=== PATIENT | female | born 1950 | race Hispanic/Latino ===

== ENCOUNTER 2019-06-05 14:22 | Inpatient (IN) | payer MEDICARE ==
[~2019-06-05] VITALS: Ht 149.9 cm; Wt 65.5 kg
[2019-06-05 15:00] LABS: BASOPHILS % (AUTO) 0.3 % (0.0-5.0); HEMATOCRIT 38.4 % (36-48); LYMPHOCYTES % (AUTO) 6.8 % (21.0-51.0); MEAN CORPUSCULAR HEMOGLOBIN 29.4 pg (27.0-33.0); MEAN CORPUSCULAR HGB CONC 34.6 g/dL (32.0-36.0); MONOCYTES % (AUTO) 8.1 % (3.0-13.0); NEUTROPHILS % (AUTO) 84.8 % (40.0-77.0); PLATELET COUNT (AUTO) 208 K/uL (130-400); RED BLOOD CELL COUNT(AUTO) 4.52 MIL/uL (4.00-5.50); WHITE BLOOD COUNT (AUTO) 10.7 K/uL (4.8-10.8)
[2019-06-05 15:09] LABS: INR 1.01 (0.85-1.15); PARTIAL THROMBOPLASTIN TIME 28.9 SEC (26.3-35.5); PROTHROMBIN TIME 10.6 SEC (9.6-11.6)
[2019-06-05 15:13] LABS: BILIRUBIN,URINE Negative (NEGATIVE); COLOR,URINE Dark Yellow (YELLOW); GLUCOSE, URINE (UA) Negative (NEGATIVE); KETONES,URINE Negative (NEGATIVE); LEUKOCYTE ESTERASE ,URINE Trace (NEGATIVE); NITRATE,URINE Negative (NEGATIVE); OCCULT BLOOD,URINE Large (NEGATIVE); PROTEIN,URINE POS 2+ mg/dL (NEGATIVE)
[2019-06-05 15:14] LABS: APPEARANCE,URINE CLOUDY (CLEAR)
[2019-06-05 15:20] LABS: AMPHET/METH SCREEN,URINE NEGATIVE (NEGATIVE); BARBITURATE SCREEN, URINE NEGATIVE (NEGATIVE); BENZODIAZEPINES SCREEN,URINE NEGATIVE (NEGATIVE); CANNABINOID SCREEN,URINE NEGATIVE (NEGATIVE); COCAINE SCREEN,URINE NEGATIVE (NEGATIVE); OPIATE SCREEN,URINE NEGATIVE (NEGATIVE); PHENCYCLIDINE SCREEN,URINE NEGATIVE (NEGATIVE)
[2019-06-05 15:21] LABS: BACTERIA,URINE Few /HPF (None Seen)
[2019-06-05 15:23] LABS: AMORPHOUS SEDIMENT,UR Moderate /LPF (None Seen); COARSE GRANULAR CASTS,URINE 0-2 /LPF (None Seen); SQUAMOUS EPITHELIAL CELL,UR Rare /HPF (0-2)
[2019-06-05 15:28] LABS: ALBUMIN 3.1 g/dL (3.5-5.0); BILIRUBIN,TOTAL 0.4 mg/dL (0.2-1.0); CREATININE 2.7 mg/dL (0.5-1.5); TOTAL PROTEIN, SERUM 7.9 g/dL (6.0-8.3)
[2019-06-05 15:48] LABS: POTASSIUM 2.8 mmol/L (3.5-5.1)
[2019-06-05] MEDS ORDERED: POTASSIUM BICARB/CIT AC 25 MEQ TABLET.EFF ONE (16:07)
[2019-06-05] MEDS ORDERED: SODIUM CHLORIDE 0.9% 1000ML 0 ML IV ONE (16:07)
[2019-06-05] MEDS ORDERED: SODIUM CHLORIDE 0.9% 100 ML IV ONE (16:34)
[2019-06-05] MEDS ORDERED: ACETAMINOPHEN 650 MG SUPPOSITORY RC ONE (16:34)
[2019-06-05] MEDS ORDERED: CEFTRIAXONE SODIUM 1 GM ONE (16:34)
[2019-06-05] MEDS ORDERED: SODIUM CHLORIDE 0.9% 1000ML 1,000 ML IV ONE (16:35)
[2019-06-05] MEDS ORDERED: POTASSIUM CHLORIDE 20MEQ/100ML 100 ML IV ONE (17:27)
[2019-06-05] MEDS ORDERED: SODIUM CHLORIDE 0.9% 1000ML 2,000 ML IV ONE (17:29)
[2019-06-05] MEDS: SODIUM CHLORIDE 0.9% 1000ML 1,000 ML IV SCH (17:30)
[2019-06-05] MEDS ORDERED: LIDOCAINE HCL-MPF 1% 2ML VIAL ONE (17:36)
[2019-06-05] MEDS ORDERED: CEFTRIAXONE SODIUM 1 GM IVP SCH (17:45)
[2019-06-05 19:12] VITALS: BP 99/58
[2019-06-05] MEDS ORDERED: HC2530O TP (22:19)
[2019-06-05] MEDS ORDERED: PRAV40TA3 PO (22:19)
[2019-06-05] MEDS ORDERED: METO25TA6 PO (22:19)
[2019-06-05] MEDS ORDERED: METF-444 PO (22:19)
[2019-06-05] MEDS ORDERED: CHOL50004 PO (22:19)
[2019-06-05] MEDS ORDERED: GABA-529 PO (22:19)
[2019-06-05] MEDS ORDERED: GLIP10TA9 PO (22:19)
[2019-06-05] MEDS ORDERED: LORA10TA7 PO (22:19)
[2019-06-05] MEDS ORDERED: LISI1TAB29 PO (22:19)
[2019-06-05] MEDS ORDERED: LEVO50TA11 PO (22:19)
[2019-06-06 00:20] VITALS: BP 121/68
[2019-06-06 04:28] VITALS: BP 143/79
[2019-06-06 05:19] LABS: HEMATOCRIT 35.9 % (36-48); MEAN CORPUSCULAR HEMOGLOBIN 29.8 pg (27.0-33.0); MEAN CORPUSCULAR HGB CONC 35.1 g/dL (32.0-36.0); MEAN CORPUSCULAR VOLUME 84.9 fL (79-99); PLATELET COUNT (AUTO) 174 K/uL (130-400); RED BLOOD CELL COUNT(AUTO) 4.23 MIL/uL (4.00-5.50); RED CELL DISTRIBUTION WIDTH 13.1 % (11.0-15.5); WHITE BLOOD COUNT (AUTO) 12.9 K/uL (4.8-10.8)
[2019-06-06 06:02] LABS: BAND NEUTROPHILS % (MANUAL) 21 % (0-2); BASOPHILS % (MANUAL) 1 % (0-2); LYMPHOCYTES % (MANUAL) 1 % (22-44); MAN.DIFF COMMENT-IMPRESSION MANUAL DIFFERENTIAL; MONOCYTES % (MANUAL) 3 % (2-9); PLATELET MORPHOLOGY COMMENT ADEQUATE; SEGMENTED NEUTROPHILS % 74 % (40-70)
[2019-06-06 06:17] LABS: CARBON DIOXIDE 19 mmol/L (21-32); CHLORIDE 105 mmol/L (101-111); CREATININE 2.2 mg/dL (0.5-1.5); GLOMERULAR FILTR. RATE CALC 23 mL/min (>60); MYOGLOBIN 608 ng/mL (10-92); PHOSPHORUS 2.5 mg/dL (2.5-4.9); SODIUM SERUM 142 mmol/L (136-145); TROPONIN I < 0.04 ng/mL (0.00-0.06); UREA NITROGEN, BLOOD 46 mg/dL (7-18)
[2019-06-06 06:37] LABS: POTASSIUM 2.9 mmol/L (3.5-5.1)
[2019-06-06 06:38] LABS: CREATINE KINASE, TOTAL 1898 U/L (21-232); GLUCOSE,RANDOM 42 mg/dL (70-105)
--- NOTE | 2019-06-06 06:39 | NUR ---
CRITICAL LAB RECEIVED CALL FROM LAB REGARDING POTASSIUM OF 2.9, PAGED DR Ksenia VALDEZ PENDING PHYSICIAN CALLBACK.
[2019-06-06] MEDS ORDERED: DEXTROSE 50%-WATER 50 ML DISP.SYRIN IV ONE (06:41)
[2019-06-06] MEDS: SODIUM CHLORIDE 0.9% 1000ML 1,000 ML IV SCH (06:50)
[2019-06-06 08:00] VITALS: BP 131/65
[2019-06-06] MEDS ORDERED: DEXTROSE 50%-WATER 50 ML DISP.SYRIN IV PRN (08:15)
[2019-06-06] MEDS ORDERED: GLUCAGON 1MG KIT 1 MG ML IM PRN (08:15)
[2019-06-06] MEDS: **HM** VIT D3 5000 UNITS PO SCH (09:00)
[2019-06-06] MEDS: ATORVASTATIN CALCIUM 10 MG TABLET PO SCH (09:45)
[2019-06-06] MEDS: LORATADINE 10 MG TABLET PO SCH (09:45)
[2019-06-06] MEDS: LEVOTHYROXINE 50 MCG TABLET PO SCH (09:45)
[2019-06-06] MEDS: METOPROLOL TARTRATE 25 MG TAB PO SCH (09:46)
[2019-06-06] MEDS: POTASSIUM CHLORIDE 20 MEQ ERTAB PO SCH (09:46)
[2019-06-06] MEDS: INSULIN HUMULIN R 100 UNIT/ML 3ML SQ SCH ×3 (11:30→21:00)
[2019-06-06 12:01] VITALS: BP 141/78
--- NOTE | 2019-06-06 12:31 | NUR ---
DYSPHAGIA EVAL COMPLETED. +S/S OF ASPIRATION WITH THIN LIQUIDS AND SOLIDS. RECOMMEND PUREED, NECTAR-THICK LIQUIDS; PILLS CRUSHED WITH APPLE SAUCE. RECOMMENDATIONS: 1.DYSPHAGIA THERAPY 3-5X WEEK TO INCREASE ORAL MOTOR STRENGTH AND PHARYNGEAL SWALLOW: LTG#1: Pt WILL TOLERATE LEAST RESTRICTIVE DIET TO MEET NUTRITION/HYDRATION WITH NO S/S OF ASPIRATION. LTG#2: SKILLED EDUCATION Pt/FAMILY/STAFF STG#1: Pt WILL PARTICIPATE IN LARYNGEAL ELEVATION/EXCURSION EXERCISES WITH 80% ACCURACY. STG#2: Pt WILL PARTICIPATE IN TONGUE BASE RETRACTION EXERCISES WITH 80% ACCURACY. STG#3: Pt WILL PARTICIPATE IN ORAL MOTOR EXERCISES WITH 80% ACCURACY. STG#4: Pt WILL TOLERATE PUREED, NECTAR-THICK LIQUID DIET WITH NO S/S OF ASPIRATION. STG#5: PT WILL TOLERATE THERAPEUTIC TRIALS OF ADVANCED TEXTURE OF MECHANICAL SOFT/CHOPPED, THIN LIQUIDS WITH NO OVERT S/S OF ASPIRATION. STG#6: SKILLED EDUCATION Pt/FAMILY/STAFF. TRANSFER OPERATOR EDUCATED Pt AND FAMILY ON RESULTS AND RECOMMENDATIONS AND RISKS AND CONSEQUENCES OF ASPIRATION. ALL QUESTIONS ANSWERED AT THIS TIME. Addendum: 06/06/19 at 1236 by ASHLEY WOOD, [facility] Amended: Links added.
[2019-06-06 16:00] VITALS: BP 131/73
[2019-06-06] MEDS ORDERED: CEFTRIAXONE SODIUM 1 GM IVP SCH (16:00)
[2019-06-06] MEDS: CEFTRIAXONE SODIUM 1 GM IVP SCH (16:47)
--- NOTE | 2019-06-06 19:22 | NUR ---
cm note met with patient and states resides athome with spouse and daughter pre[place], per dtr, pt was independent with ambualtion and adls. prior to this admission, but has gotten very weak,and daughter assists with personal care. may need walker or dme.provided info on area agency on aging. discussed snf for rehab, per daughter open to snf. will followup as pt progresses. dc plan is back to home or snf if md orders. Addendum: 06/06/19 at 1925 by MAX BANG CM Amended: Links added.
[2019-06-06 19:30] VITALS: BP 129/69
--- NOTE | 2019-06-06 20:00 | NUR ---
paged Dr. Quick, but Dr. Zamora was career and transition teacher. Told him about patient's fever of 100.8, he ordered acetaminophen of 650 mg prn for fever. I also made him aware of patient's inability to sleep. He said he would come see the patient in the morning. Nothing ordered for lack of sleep.
[2019-06-06] MEDS ORDERED: ACETAMINOPHEN 325 MG TAB ONE (20:13)
[2019-06-06] MEDS: ACETAMINOPHEN 325 MG TAB PO PRN (21:15)
[2019-06-07] VITALS: BP 103/50
[2019-06-07 03:30] VITALS: BP 125/65
[2019-06-07 04:36] LABS: HEMATOCRIT 32.1 % (36-48); MEAN CORPUSCULAR HEMOGLOBIN 29.7 pg (27.0-33.0); MEAN CORPUSCULAR HGB CONC 35.1 g/dL (32.0-36.0); MEAN CORPUSCULAR VOLUME 84.6 fL (79-99); PLATELET COUNT (AUTO) 142 K/uL (130-400); RED BLOOD CELL COUNT(AUTO) 3.79 MIL/uL (4.00-5.50); RED CELL DISTRIBUTION WIDTH 13.5 % (11.0-15.5); WHITE BLOOD COUNT (AUTO) 11.1 K/uL (4.8-10.8)
[2019-06-07 04:50] LABS: CREATININE 2.2 mg/dL (0.5-1.5)
[2019-06-07 04:52] LABS: POTASSIUM 2.8 mmol/L (3.5-5.1)
[2019-06-07 05:16] LABS: BAND NEUTROPHILS % (MANUAL) 12 % (0-2); LYMPHOCYTES % (MANUAL) 7 % (22-44); MAN.DIFF COMMENT-IMPRESSION MANUAL DIFFERENTIAL; MONOCYTES % (MANUAL) 3 % (2-9); SEGMENTED NEUTROPHILS % 78 % (40-70)
[2019-06-07 05:17] LABS: PLATELET MORPHOLOGY COMMENT ADEQUATE
[2019-06-07] MEDS: INSULIN HUMULIN R 100 UNIT/ML 3ML SQ SCH ×4 (05:21→21:00)
[2019-06-07] MEDS: POTASSIUM CHLORIDE 20 MEQ ERTAB PO SCH (05:37)
--- NOTE | 2019-06-07 06:34 | NUR ---
evert neil aware of patient's low potassium. continue protocol.
[2019-06-07] MEDS: SODIUM CHLORIDE 0.9% 1000ML 1,000 ML IV SCH ×2 (06:54→22:47)
[2019-06-07 08:12] VITALS: BP 127/72
[2019-06-07] MEDS: ACETAMINOPHEN 325 MG TAB PO PRN ×2 (08:14→19:54)
[2019-06-07] MEDS: **HM** VIT D3 5000 UNITS PO SCH (09:00)
[2019-06-07] MEDS: METOPROLOL TARTRATE 25 MG TAB PO SCH (09:59)
[2019-06-07] MEDS: LEVOTHYROXINE 50 MCG TABLET PO SCH (09:59)
[2019-06-07] MEDS: ATORVASTATIN CALCIUM 10 MG TABLET PO SCH (09:59)
[2019-06-07] MEDS: LORATADINE 10 MG TABLET PO SCH (09:59)
[2019-06-07 11:21] VITALS: BP 106/62
[2019-06-07] MEDS ORDERED: LIDOCAINE HCL-MPF 1% 2ML VIAL IV PRN (13:15)
[2019-06-07] MEDS ORDERED: POTASSIUM CHLORIDE 10MEQ/100ML 100 ML IV PRN (13:15)
[2019-06-07 15:50] VITALS: BP 110/65
[2019-06-07] MEDS: CEFTRIAXONE SODIUM 1 GM IVP SCH (16:19)
[2019-06-07] MEDS: MAGNESIUM 2GM PREMIX 50ML 50 ML IV PRN (16:20)
[2019-06-07] MEDS: POTASSIUM CHLORIDE 20 MEQ ERTAB PO PRN ×2 (19:54→22:47)
[2019-06-07 20:45] VITALS: BP 140/61
--- NOTE | 2019-06-07 20:59 | NUR ---
NURSING NOTE Informed Dr. Zamora at 2057 of pt's temperature of 103.0 and tylenol was given and pt's temp is now 102.8. Informed him Blood cultures and urine cultures have already been taken. He stated at this time to wait for results since pt is already on antibiotic and make sure CBC and BMP for AM. no other orders at this time. Family was informed of doctors orders.
[2019-06-08] VITALS: BP 104/55
[2019-06-08 03:57] VITALS: BP 131/68
[2019-06-08] MEDS: ACETAMINOPHEN 325 MG TAB PO PRN ×2 (05:06→17:22)
[2019-06-08] MEDS: INSULIN HUMULIN R 100 UNIT/ML 3ML SQ SCH ×4 (05:27→21:00)
[2019-06-08 05:52] LABS: HEMATOCRIT 34.8 % (36-48); MEAN CORPUSCULAR HEMOGLOBIN 29.8 pg (27.0-33.0); MEAN CORPUSCULAR HGB CONC 34.5 g/dL (32.0-36.0); MEAN CORPUSCULAR VOLUME 86.5 fL (79-99); PLATELET COUNT (AUTO) 101 K/uL (130-400); RED BLOOD CELL COUNT(AUTO) 4.02 MIL/uL (4.00-5.50); RED CELL DISTRIBUTION WIDTH 13.4 % (11.0-15.5); WHITE BLOOD COUNT (AUTO) 11.6 K/uL (4.8-10.8)
[2019-06-08 06:15] LABS: CREATININE 1.9 mg/dL (0.5-1.5); MAGNESIUM 1.8 mg/dL (1.80-2.40); PHOSPHORUS 2.1 mg/dL (2.5-4.9); POTASSIUM 3.2 mmol/L (3.5-5.1)
[2019-06-08] MEDS: POTASSIUM CHLORIDE 10% ELIXIR 20 MEQ/15 ML UDCUP PO PRN (07:00)
[2019-06-08 08:00] VITALS: BP_SYST 112; BP_SYST 156; BP_DIAS 62; BP_DIAS 73
[2019-06-08] MEDS: **HM** VIT D3 5000 UNITS PO SCH (09:00)
[2019-06-08] MEDS: LORATADINE 10 MG TABLET PO SCH (09:13)
[2019-06-08] MEDS: ATORVASTATIN CALCIUM 10 MG TABLET PO SCH (09:13)
[2019-06-08] MEDS: METOPROLOL TARTRATE 25 MG TAB PO SCH (09:14)
[2019-06-08] MEDS: LEVOTHYROXINE 50 MCG TABLET PO SCH (09:14)
[2019-06-08 11:00] VITALS: BP 115/69
[2019-06-08] MEDS: POTASSIUM CHLORIDE 20 MEQ ERTAB PO SCH (12:44)
[2019-06-08] MEDS: SODIUM CHLORIDE 0.9% 1000ML 1,000 ML IV SCH (12:47)
[2019-06-08 16:00] VITALS: BP 123/66
[2019-06-08] MEDS: CEFTRIAXONE SODIUM 1 GM IVP SCH (16:40)
[2019-06-08] MEDS: MAGNESIUM 2GM PREMIX 50ML 50 ML IV PRN (21:12)
[2019-06-08 21:47] VITALS: BP 119/69
[2019-06-09] VITALS (7 sets, daily range): BP systolic 118–138; BP diastolic 63–76
[2019-06-09] MEDS: SODIUM CHLORIDE 0.9% 1000ML 1,000 ML IV SCH ×2 (01:59→15:10)
[2019-06-09 05:11] LABS: HEMATOCRIT 32.5 % (36-48); MEAN CORPUSCULAR HEMOGLOBIN 29.5 pg (27.0-33.0); MEAN CORPUSCULAR HGB CONC 34.9 g/dL (32.0-36.0); MEAN CORPUSCULAR VOLUME 84.4 fL (79-99); PLATELET COUNT (AUTO) 96 K/uL (130-400); RED BLOOD CELL COUNT(AUTO) 3.85 MIL/uL (4.00-5.50); RED CELL DISTRIBUTION WIDTH 13.7 % (11.0-15.5); WHITE BLOOD COUNT (AUTO) 11.9 K/uL (4.8-10.8)
[2019-06-09 05:22] LABS: BAND NEUTROPHILS % (MANUAL) 30 % (0-2); LYMPHOCYTES % (MANUAL) 9 % (22-44); MAN.DIFF COMMENT-IMPRESSION MANUAL DIFFERENTIAL; MONOCYTES % (MANUAL) 7 % (2-9); PLATELET MORPHOLOGY COMMENT DECREASED; SEGMENTED NEUTROPHILS % 54 % (40-70)
[2019-06-09 05:36] LABS: ALBUMIN 1.9 g/dL (3.5-5.0); BILIRUBIN,DIRECT 0.2 mg/dL (0.0-0.3); BILIRUBIN,TOTAL 0.4 mg/dL (0.2-1.0); CREATININE 1.7 mg/dL (0.5-1.5); PHOSPHORUS 2.1 mg/dL (2.5-4.9); POTASSIUM 3.4 mmol/L (3.5-5.1); TOTAL PROTEIN, SERUM 5.5 g/dL (6.0-8.3)
[2019-06-09] MEDS: INSULIN HUMULIN R 100 UNIT/ML 3ML SQ SCH ×4 (06:48→21:05)
[2019-06-09] MEDS: **HM** VIT D3 5000 UNITS PO SCH (09:00)
[2019-06-09] MEDS: METOPROLOL TARTRATE 25 MG TAB PO SCH (09:16)
[2019-06-09] MEDS: LORATADINE 10 MG TABLET PO SCH (09:16)
[2019-06-09] MEDS: LEVOTHYROXINE 50 MCG TABLET PO SCH (09:16)
[2019-06-09] MEDS: ATORVASTATIN CALCIUM 10 MG TABLET PO SCH (09:16)
[2019-06-09] MEDS: POTASSIUM CHLORIDE 20 MEQ ERTAB PO SCH (09:24)
--- NOTE | 2019-06-09 11:00 | NUR ---
DYSPHAGIA EVAL COMPLETED. +S/S OF ASPIRATION WITH THIN AND NECTAR-THICK LIQUIDS. RECOMMEND PUREED, HONEY-THICK LIQUIDS; PILLS CRUSHED WITH APPLESAUCE. RECOMMENDATIONS: 1. CONTINUE PLAN OF CARE Addendum: 06/09/19 at 1346 by ASHLEY WOOD, [facility] Amended: Links added.
[2019-06-09] MEDS: CEFTRIAXONE SODIUM 1 GM IVP SCH (18:17)
--- NOTE | 2019-06-09 21:05 | NUR ---
MEDS SHIFT ASSESSMENT DONE,PLEAS REFER TO CHART INSULIN DOSE DUE ADMINISTERED, TOLERATED WELL. PT NOTED TO BE CONFUSED AT THIS TIME BUT NOT ANXIOUS. PT'S DAUGHTER IN ROOM AND WILL STAY THE NIGHT. PT'S DIAPER CHANGED. RE-POSITIONED COMFORTABLY IN BED. ENCOURAGED TO REST AND SLEEP. CALL LIGHT WITHIN REACH. Addendum: 06/09/19 at 0667 by VIK MERAZ RN RN Amended: Links added.
--- NOTE | 2019-06-10 02:00 | NUR ---
ROUNDS PT RESTING WELL, FAIRLY ASLEEP WITH RESPIRATIONS EVEN AND UNLABORED. NO NOTED DISTRESS. KEPT UNDISTURBED FOR NOW. WILL MONITOR PT. FAMILY ASLEEP AT BEDSIDE.
[2019-06-10 03:59] VITALS: BP 130/71
[2019-06-10] MEDS: SODIUM CHLORIDE 0.9% 1000ML 1,000 ML IV SCH ×2 (04:10→17:55)
[2019-06-10] MEDS: INSULIN HUMULIN R 100 UNIT/ML 3ML SQ SCH ×4 (05:56→20:40)
[2019-06-10] MEDS: POTASSIUM CHLORIDE 20 MEQ ERTAB PO PRN (06:57)
--- NOTE | 2019-06-10 06:57 | NUR ---
MEDS AWAKENED PT FOR POTASSIUM REPLACEMENT, KCL=3.3. PT TOLERATED MEDS WELL. ENDORSING TO AM SHIFT FOR MORE CARE AND MANAGEMENT.
[2019-06-10 07:00] VITALS: BP 127/65
[2019-06-10] MEDS: **HM** VIT D3 5000 UNITS PO SCH (09:00)
[2019-06-10] MEDS: LEVOTHYROXINE 50 MCG TABLET PO SCH (09:33)
[2019-06-10] MEDS: METOPROLOL TARTRATE 25 MG TAB PO SCH (09:33)
[2019-06-10] MEDS: ATORVASTATIN CALCIUM 10 MG TABLET PO SCH (09:33)
[2019-06-10] MEDS: LORATADINE 10 MG TABLET PO SCH (09:33)
[2019-06-10] MEDS: POTASSIUM CHLORIDE 20 MEQ ERTAB PO SCH (09:40)
[2019-06-10 11:00] VITALS: BP 136/75
--- NOTE | 2019-06-10 11:52 | NUR ---
RD NOTIFICATION DIET: 75GMCCD, PUREED, HONEY THICK LIQUIDS. FAMILY AWARE AND ABLE TO THICKEN PT LIQUIDS PER FAMILY. PO INTAKE <50% AND HAS GOOD APPETITE (IMPROVING) PER PT. SHE IS TOLERATING DIET WELL AND ASKED FOR A SANDWICH (WHICH SHE CANNOT HAVE). LBM: 06/09 NOTED. NO COMPLAINTS OF N/V/C/D. RD RECOMMENDS CONTINUE CURRENT DIET/ TEXTURE MODIFICATIONS OFFER GLUCERNA BID (FAMILY KNOWS TO THICKEN) RD WILL CONTINUE TO MONITOR AND F/U NEEDED, THANK YOU. Addendum: 06/10/19 at [address] Amended: Links added.
[2019-06-10] MEDS ORDERED: CEPH500B PO (12:15)
--- NOTE | 2019-06-10 14:42 | NUR ---
SUMMARY OF DISCHARGE PLANNING TERE FROM [facility] CAME THIS MORNING, STATES WAS ADVISED OF A REFERRAL BUT THE [facility]PLETE [facility] DID NOT COME THROUGH THE FAX. RE ENTERED ORDERS, ADDED HAND TOUCH UP PAINTER NOTES, AND EMAILED. RECD CALL BACK THAT [facility] WAS NOT IN NETWORK. ADVISED FAMILY- JOSÉ LUIS FINN AT BEDSIDE--GOT REQUEST TO SEND TO ANOTHER FACILITY. CALL TO [facility], THEY WILL CHECK IF THEY ARE IN NETWORK CALL TO HUMA, DAUGHTER AT [phone], UPDATED ON PLACEMENT, UPDATED THAT [facility] NOT REC AUTH TONIGHT BUT WILL LET FAMILY KNOW. UPDATED RN. Addendum: 06/10/19 at 1458 by MAE NANCE RN Amended: Links added.
[2019-06-10 16:00] VITALS: BP 149/70
[2019-06-10] MEDS: CEFTRIAXONE SODIUM 1 GM IVP SCH (17:25)
[2019-06-10 20:00] VITALS: BP 148/72
[2019-06-10] MEDS: POTASSIUM CHLORIDE 10% ELIXIR 20 MEQ/15 ML UDCUP PO PRN (20:27)
--- NOTE | 2019-06-10 20:40 | NUR ---
MEDS SHIFT ASSESSMENT DONE, PLEASE REFER TO CHART. DUE MEDS ADMINISTERED, TOLERATED WELL. WET DIAPER CHANGED, BARRIER CREAM APPLIED TO DEL-AREA. RE-POSITIONED COMFORTABLY IN BED. CALL LIGHT WITHIN REACH. WILL MONITOR PT. Addendum: 06/11/19 at 0127 by VIK MERAZ RN RN Amended: Links added.
[2019-06-11] VITALS: BP 137/77
[2019-06-11] MEDS: SODIUM CHLORIDE 0.9% 1000ML 1,000 ML IV SCH ×3 (01:33→20:19)
--- NOTE | 2019-06-11 01:46 | NUR ---
CHANGE PT NOTED TO BE AWAKE AND MOVING IN BED. PT'S DIAPER AND WET LINEN CHANGED. RE-POSITIONED COMFORTABLY IN BED. ENCOURAGED PT TO GO BACK TO SLEEP. CALL LIGHT WITHIN REACH. WILL MONITOR PT.
[2019-06-11 04:00] VITALS: BP 140/75
[2019-06-11] MEDS: INSULIN HUMULIN R 100 UNIT/ML 3ML SQ SCH ×4 (05:45→20:30)
--- NOTE | 2019-06-11 05:55 | NUR ---
ROUNDS PT RESTING WELL. NO DISTRESS NOTED. KEPT UNDISTURBED FOR NOW. FOR MORE CARE.
[2019-06-11 08:00] VITALS: BP 132/73
[2019-06-11] MEDS: POTASSIUM CHLORIDE 20 MEQ ERTAB PO SCH (08:15)
[2019-06-11] MEDS: **HM** VIT D3 5000 UNITS PO SCH (09:00)
[2019-06-11] MEDS: LORATADINE 10 MG TABLET PO SCH (09:19)
[2019-06-11] MEDS: ATORVASTATIN CALCIUM 10 MG TABLET PO SCH (09:19)
[2019-06-11] MEDS: METOPROLOL TARTRATE 25 MG TAB PO SCH (09:19)
[2019-06-11] MEDS: LEVOTHYROXINE 50 MCG TABLET PO SCH (09:20)
[2019-06-11 12:00] VITALS: BP 126/64
--- NOTE | 2019-06-11 12:49 | NUR ---
NO TREATMENT. Pt NOT IN ROOM AT THE TIME OF VISIT. WILL FOLLOW UP WITH Pt. FORCER MAKER WILL CONTINUE TO FOLLOW Pt. RECOMMEND CONTINUED PUREED, HONEY-THICK LIQUIDS; PILLS CRUSHED. Addendum: 06/11/19 at 1251 by ASHLEY WOOD, [facility] Amended: Links added.
--- NOTE | 2019-06-11 15:07 | NUR ---
PENDING AUTH FROM [facility]
[2019-06-11 16:00] VITALS: BP 143/75
[2019-06-11] MEDS: CEFTRIAXONE SODIUM 1 GM IVP SCH (16:52)
[2019-06-11 20:00] VITALS: BP 161/92
[2019-06-12] VITALS: BP 156/83
[2019-06-12 03:52] VITALS: BP 144/80
[2019-06-12] MEDS: INSULIN HUMULIN R 100 UNIT/ML 3ML SQ SCH ×2 (06:57→12:36)
[2019-06-12 07:52] VITALS: BP 149/63
[2019-06-12] MEDS: POTASSIUM CHLORIDE 20 MEQ ERTAB PO SCH (08:15)
[2019-06-12] MEDS: **HM** VIT D3 5000 UNITS PO SCH (09:00)
[2019-06-12] MEDS: METOPROLOL TARTRATE 25 MG TAB PO SCH (09:27)
[2019-06-12] MEDS: LORATADINE 10 MG TABLET PO SCH (09:28)
[2019-06-12] MEDS: LEVOTHYROXINE 50 MCG TABLET PO SCH (09:28)
[2019-06-12] MEDS: ATORVASTATIN CALCIUM 10 MG TABLET PO SCH (09:28)
[2019-06-12] MEDS: SODIUM CHLORIDE 0.9% 1000ML 1,000 ML IV SCH (09:37)
[2019-06-12 11:27] VITALS: BP 145/93
--- NOTE | 2019-06-12 12:00 | NUR ---
CM NOTE PER [facility] SOFTWARE TEST ANALYST, AUTHORIZATION RECEIVED. PENDING DC TO SNF WHEN CLEARED BY .
[2019-06-12 16:00] VITALS: BP 151/93
--- NOTE | 2019-06-12 16:30 | NUR ---
DISCHARGE PATIENT AND FAMILY AT BEDSIDE GIVEN DISCHARGE INSTRUCTIONS AND EDUCATION ON FOLLOW UP APPOINTMENTS AND NEW PRESCRIBED MEDICATIONS. REPORT GIVEN TO PERRY ALEXANDER AT [facility]. ALL QUESTIONS ANSWERED ACCORDINGLY. NO CONCERNS VOICED. PATIENT LEFT VIA WHEELCHAIR. NO DISTRESS NOTED UPON DISCHARGE.
== END 2019-06-12 16:30 | DRG 682 ==
LOC: EDH 14:22 → EDHIP 16:47 → 3CH 19:15
PROVIDERS: ADMIT Internal Medicine Nephrology; ATTEND Internal Medicine Nephrology
DX: N17.0 Acute kidney failure with tubular necrosis (principal); G93.41 Metabolic encephalopathy; N39.0 Urinary tract infection, site not specified; M62.82 Rhabdomyolysis; D69.6 Thrombocytopenia, unspecified; E03.9 Hypothyroidism, unspecified; E11.22 Type 2 diabetes mellitus with diabetic chronic kidney disease; E78.00 Pure hypercholesterolemia, unspecified; E78.5 Hyperlipidemia, unspecified; E83.42 Hypomagnesemia; E86.9 Volume depletion, unspecified; E87.6 Hypokalemia; I12.9 Hypertensive chronic kidney disease with stage 1 through stage 4 chronic kidney disease, or unspecified chronic kidney disease; N18.9 Chronic kidney disease, unspecified; R62.7 Adult failure to thrive; Z90.5 Acquired absence of kidney; Z85.528 Personal history of other malignant neoplasm of kidney; Z91.19 Patient's noncompliance with other medical treatment and regimen; Z86.73 Personal history of transient ischemic attack (TIA), and cerebral infarction without residual deficits
CPT/HCPCS: 36415; 70450; 70551; 71045; 71046; 76770; 80048; 80053; 80076; 80305; 81001; 82140; 82550; 82948; 83605; 83721; 83735; 83874; 84100; 84132; 84484; 85025; 85027; 85610; 85730; 87040; 87088; 92610; 93005; 97039; A6250; G0378; J0696; J1815; J3475; J3480; J3490; J7030; J7070

== ENCOUNTER 2022-06-07 07:37 | Emergency (ER) | payer MEDICARE ==
[~2022-06-07] VITALS: Ht 152.4 cm; Wt 56.2 kg
[~2022-06-07 07:37] MED LIST: CEPH500B PO; CHOL50004 PO; GLIP10TA9 PO; HC2530O TP; LEVO50TA11 PO; LISI1TAB53 PO; LORA10TA7 PO; METF-444 PO; METO25TA6 PO; PRAV40TA3 PO
[2022-06-07] MEDS ORDERED: IOHEXOL 350 MG/ML 100ML INFUS..BTL IV ONE (08:26)
[2022-06-07 08:29] LABS: BASOPHILS % (AUTO) 0.6 % (0.0-5.0); EOSINOPHILS % (AUTO) 2.6 % (0.0-8.0); HEMATOCRIT 42.7 % (36-48); LYMPHOCYTES % (AUTO) 29.1 % (21.0-51.0); MEAN CORPUSCULAR HEMOGLOBIN 29.6 pg (27.0-33.0); MEAN CORPUSCULAR HGB CONC 33.5 g/dL (32.0-36.0); MEAN CORPUSCULAR VOLUME 88.4 fL (79-99); MONOCYTES % (AUTO) 7.6 % (3.0-13.0); NEUTROPHILS % (AUTO) 59.7 % (40.0-77.0); PLATELET COUNT (AUTO) 344 K/uL (130-400); RED BLOOD CELL COUNT(AUTO) 4.83 MIL/uL (4.00-5.50); RED CELL DISTRIBUTION WIDTH 12.9 % (11.0-15.5); WHITE BLOOD COUNT (AUTO) 11.2 K/uL (4.8-10.8)
[2022-06-07 08:34] LABS: CREATININE 1.4 mg/dL (0.5-1.5); POTASSIUM 3.9 mmol/L (3.5-5.1)
[2022-06-07 08:38] LABS: ALBUMIN 3.8 g/dL (3.5-5.0)
[2022-06-07 08:52] LABS: B-TYPE NATRIURETIC PEPTIDE 44 pg/mL (0-100)
[2022-06-07] MEDS ORDERED: 0.9%NACL 1000ML 1,000 ML IV ONE (09:00)
[2022-06-07 10:00] LABS: APPEARANCE,URINE CLEAR (CLEAR); BILIRUBIN,URINE NEGATIVE (NEGATIVE); COLOR,URINE LIGHT-YELLOW (YELLOW); GLUCOSE, URINE (UA) >=1000 mg/dL (NEGATIVE); KETONES,URINE NEGATIVE (NEGATIVE); LEUKOCYTE ESTERASE ,URINE NEGATIVE Leu/uL (NEGATIVE); NITRATE,URINE NEGATIVE (NEGATIVE); OCCULT BLOOD,URINE NEGATIVE (NEGATIVE); PH,URINE 5.5 (5.0-8.0); PROTEIN,URINE 50 mg/dL (NEGATIVE); UROBILINOGEN,URINE 0.2 mg/dL (0.2-1.0)
[2022-06-07 10:05] LABS: MUCUS,URINE RARE LPF (None Seen); OTHER CASTS, URINE 1 /LPF (None Seen); SQUAMOUS EPITHELIAL CELL,UR RARE /HPF (0-2)
[2022-06-07 12:15] VITALS: BP 156/8
== END 2022-06-07 12:16 | disposition short-term general hospital (02) ==
LOC: EDH 07:37
DX: I63.9 Cerebral infarction, unspecified (principal); R47.9 Unspecified speech disturbances; E11.9 Type 2 diabetes mellitus without complications; I10 Essential (primary) hypertension; Z98.890 Other specified postprocedural states; Z79.899 Other long term (current) drug therapy; Z79.84 Long term (current) use of oral hypoglycemic drugs
CPT/HCPCS: 99291; 70496; 70551; 96360; 71045; 96361; 82550; 84484; 80053; 83880; 85025; 82948; 81001; 36415; 70498; 99292; 93005; 70450; J7030; Q9967